=== PATIENT | female | born 1985 | race African-American/Black ===

== ENCOUNTER 2017-08-03 08:40 | Emergency (ER) | payer MEDICAID ==
[~2017-08-03] VITALS: Ht 165.1 cm; Wt 92.1 kg
[2017-08-03 08:40] VITALS: BP_SYST 113
--- NOTE | 2017-08-03 08:40 | NUR ---
BROUGHT BACK TO BED #8 AND TRIAGED. REPORT GIVEN TO TOO
--- NOTE | 2017-08-03 08:45 | NUR ---
Pt presents to ER c/o nausea & vomiting since last night. Pt states that she vomited twice at home. Pt denies any pain. Pt denies any significant medical history. No acute distress noted, AOX4, allergy to penicillin noted.
--- NOTE | 2017-08-03 08:47 | NUR ---
DR DAVIS AT BEDSIDE FOR EVALUATION
--- NOTE | 2017-08-03 09:20 | NUR ---
BS 125, reported to Dr. Bolanos.
--- NOTE | 2017-08-03 09:25 | NUR ---
Patient given written and verbal discharge instructions and verbalizes understanding. ER MD discussed with patient the results and treatment provided. Patient in stable condition. ID arm band removed. No Rx given. Patient educated on pain management and to follow up with PMD. Pain Scale 0/10. Opportunity for questions provided and answered.
[2017-08-03 16:09] VITALS: BP_SYST 113
== END 2017-08-03 16:09 | disposition home or self-care (01) ==
LOC: SED 08:40
DX: K29.00 Acute gastritis without bleeding (principal)
CPT/HCPCS: 82962; 99281; 99282

== ENCOUNTER 2018-09-05 09:36 | Emergency (ER) | payer MEDICAID ==
[~2018-09-05] VITALS: Ht 162.6 cm; Wt 94.8 kg
[2018-09-05 09:47] VITALS: BP_SYST 133
[2018-09-05] MEDS ORDERED: NACL 0.9% 1,000 ML IV ONE (09:57)
[2018-09-05] MEDS ORDERED: ONDANSETRON HCL 4 MG/2 ML VIAL IVP ONE (10:00)
[2018-09-05 10:52] LABS: BASOPHILS # (AUTO) 0.3 K/uL (0.0-0.2); BASOPHILS % (AUTO) 2.6 % (0.0-2.0); EOSINOPHILS # (AUTO) 0.1 K/uL (0.0-0.4); EOSINOPHILS % (AUTO) 0.9 % (0.0-4.0); HEMATOCRIT 42.4 % (36-48); HEMOGLOBIN 13.7 g/dL (12.0-16.0); LYMPHOCYTES # (AUTO) 1.8 K/uL (1.0-5.5); LYMPHOCYTES % (AUTO) 18.8 % (20.5-51.5); MEAN CORPUSCULAR HEMOGLOBIN 26 pg (27-31); MEAN CORPUSCULAR HGB CONC 32 % (32-36); MEAN CORPUSCULAR VOLUME 80 fL (79.0-98.0); MONOCYTES # (AUTO) 0.6 K/uL (0.0-1.0); MONOCYTES % (AUTO) 6.4 % (1.7-9.3); NEUTROPHILS # (AUTO) 6.9 K/uL (1.8-7.7); NEUTROPHILS % (AUTO) 71.3 % (40.0-70.0); PLATELET COUNT (AUTO) 318 K/uL (130-430); RED BLOOD CELL COUNT(AUTO) 5.28 MIL/uL (4.2-6.2); WHITE BLOOD COUNT (AUTO) 9.7 K/uL (4.8-10.8)
[2018-09-05 10:58] LABS: CALCIUM 9.5 mg/dL (8.4-11.0); CREATININE 1.01 mg/dL (0.55-1.30); POTASSIUM 3.8 mmol/L (3.5-5.1)
[2018-09-05 11:03] LABS: ALBUMIN 3.6 g/dL (3.4-4.8); TOTAL BILIRUBIN 0.3 mg/dL (0.0-1.0)
[2018-09-05 11:04] LABS: PROTHROMBIN TIME 10.1 SECS (9.5-12.5)
[2018-09-05 11:37] LABS: BILIRUBIN,URINE NEGATIVE (NEGATIVE); BLOOD, URINE NEGATIVE (NEGATIVE); CLARITY/URINE CLEAR (CLEAR); COLOR,URINE YELLOW (YELLOW); GLUCOSE,URINE NEGATIVE (NEGATIVE); KETONES,URINE NEGATIVE (NEGATIVE); LEUKOCYTE ESTERASE ,URINE NEGATIVE (NEGATIVE); NITRITE, URINE NEGATIVE (NEGATIVE); PROTEIN URINE NEGATIVE (NEGATIVE); UROBILINOGEN,URINE 0.2 (0.2-1.0)
[2018-09-05 11:52] VITALS: BP_SYST 132
== END 2018-09-05 11:52 | disposition home or self-care (01) ==
LOC: SED 09:36
DX: H81.10 Benign paroxysmal vertigo, unspecified ear (principal); Z88.0 Allergy status to penicillin; R03.0 Elevated blood-pressure reading, without diagnosis of hypertension
CPT/HCPCS: 36415; 71045; 80053; 81002; 81003; 81025; 82150; 82550; 83690; 85025; 85610; 85730; 93005; 96361; 96374; 99284; J2405; J7030

== ENCOUNTER 2019-10-28 13:56 | Emergency (ER) | payer MEDICAID ==
[~2019-10-28] VITALS: Ht 162.6 cm; Wt 98.0 kg
[2019-10-28 14:00] VITALS: BP_SYST 120
[2019-10-28 16:55] VITALS: BP_SYST 115
== END 2019-10-28 16:55 | disposition home or self-care (01) ==
LOC: SED 13:56
DX: H10.212 Acute toxic conjunctivitis, left eye (principal); Z88.0 Allergy status to penicillin
CPT/HCPCS: 99281; 99284